=== PATIENT | male | born 1955 | race Caucasian/White ===

== ENCOUNTER 2019-03-22 18:52 | Emergency (ER) | payer BC ==
[~2019-03-22] VITALS: Ht 170.2 cm; Wt 92.5 kg
[2019-03-22 19:36] VITALS: BP 121/77
== END 2019-03-22 19:37 | disposition home or self-care (01) ==
LOC: ER 18:55
DX: S91.331A Puncture wound without foreign body, right foot, initial encounter (principal); W45.0XXA Nail entering through skin, initial encounter; Y93.89 Activity, other specified; Y92.89 Other specified places as the place of occurrence of the external cause; Y99.8 Other external cause status
CPT/HCPCS: A4663

== ENCOUNTER 2019-05-11 21:04 | Emergency (ER) | payer BC ==
[~2019-05-11] VITALS: Ht 170.2 cm; Wt 93.0 kg
[2019-05-11] MEDS ORDERED: ALLO100T PO (21:18)
[2019-05-11] MEDS ORDERED: CEFTRIAXONE 1 G VIAL ONE (21:41)
[2019-05-11] MEDS ORDERED: LIDOCAINE HCL 1% 20 ML VIAL ONE (21:41)
[2019-05-11] MEDS ORDERED: CEFTRIAXONE 1 G VIAL IM ONE (21:45)
[2019-05-11 21:58] VITALS: BP 139/74
--- NOTE | 2019-05-11 21:58 | NUR ---
Patient discharged to home in stable conditon. Written and verbal after care instructions given. Patient verbalizes understanding of instructions. Walked out of ER with no distress noted.
== END 2019-05-11 21:59 | disposition home or self-care (01) ==
LOC: ER 21:09
DX: L03.031 Cellulitis of right toe (principal); Z79.899 Other long term (current) drug therapy
CPT/HCPCS: 96372; 99283; J0696; J3490; A4663

== ENCOUNTER 2021-03-26 13:50 | Inpatient (IN) | payer BC ==
[~2021-03-26] VITALS: Ht 170.2 cm; Wt 85.7 kg
[~2021-03-26 13:50] MED LIST: ALLO100T PO
--- NOTE | 2021-03-26 14:10 | NUR ---
PT IS IN ROOM #1B. DR CASTREJON EVALUATED THE PT.
[2021-03-26 14:33] LABS: HEMATOCRIT 44.6 % (36.7-47.1); MEAN CORPUSCULAR HEMOGLOBIN 29.6 uug (23.8-33.4); MEAN CORPUSCULAR VOLUME 88.1 fL (73.0-96.2); PLATELET COUNT (AUTO) 234 K/uL (152-348)
[2021-03-26 14:51] LABS: THYROID STIMULATING HORMONE 1.248 mIU/mL (0.358-3.740)
[2021-03-26 14:55] LABS: CREATININE 1.5 mg/dL (0.6-1.3)
[2021-03-26 15:03] LABS: BILIRUBIN,DIRECT 0.1 mg/dL (0.0-0.2); BILIRUBIN,TOTAL 0.5 mg/dL (0.2-1.0); TOTAL PROTEIN, SERUM 7.1 g/dL (6.4-8.2)
[2021-03-26 15:04] LABS: MAGNESIUM 2.2 mg/dL (1.8-2.4); PHOSPHOROUS 3.1 mg/dL (2.5-4.9)
[2021-03-26] MEDS ORDERED: SIMV10TA98 PO (17:31)
[2021-03-26] MEDS ORDERED: ASPIRIN 325 MG TABLET PO ONE (18:30)
[2021-03-26] MEDS ORDERED: IV NS 1000 ML 1,000 ML IV ONE (18:30)
[2021-03-26] MEDS ORDERED: ASPIRIN 325 MG TABLET ONE (18:41)
[2021-03-26] MEDS ORDERED: ONDANSETRON 4 MG/2 ML VIAL IV PRN (18:45)
[2021-03-26] MEDS ORDERED: DOCUSATE SODIUM 100 MG CAPSULE PO PRN (18:45)
[2021-03-26] MEDS ORDERED: MAG HYDROX/AL HYDROX/SIMETH 30 ML LIQUID UDC PO PRN (18:45)
[2021-03-26] MEDS ORDERED: MORPHINE SULFATE 2 MG/1 ML DISP.SYRIN IV PRN (18:45)
[2021-03-26] MEDS ORDERED: NITROGLYCERIN 0.4 MG/TAB BOTTLE SL PRN (18:45)
[2021-03-26] MEDS ORDERED: ACETAMINOPHEN 325 MG TABLET PO PRN (18:45)
--- NOTE | 2021-03-26 20:45 | NUR ---
Gave report to Nando BELCHER
[2021-03-26 21:27] VITALS: BP 120/75
[2021-03-27 00:50] VITALS: BP 119/69
[2021-03-27 04:21] VITALS: BP 110/62
[2021-03-27 04:55] LABS: MEAN CORPUSCULAR HEMOGLOBIN 29.8 uug (23.8-33.4); MEAN CORPUSCULAR VOLUME 87.9 fL (73.0-96.2); PLATELET COUNT (AUTO) 210 K/uL (152-348)
[2021-03-27 05:01] LABS: CREATININE 1.2 mg/dL (0.6-1.3); POTASSIUM 3.9 mmol/L (3.5-5.1)
[2021-03-27 05:08] LABS: BILIRUBIN,TOTAL 0.5 mg/dL (0.2-1.0); MAGNESIUM 2.2 mg/dL (1.8-2.4); PHOSPHOROUS 3.4 mg/dL (2.5-4.9); TOTAL PROTEIN, SERUM 6.3 g/dL (6.4-8.2)
[2021-03-27 05:15] LABS: THYROID STIMULATING HORMONE 1.405 mIU/mL (0.358-3.740)
--- NOTE | 2021-03-27 07:30 | NUR ---
RECEIVED PT AWAKE , ALERT AND ORIENTEDX4. PT IN NO ACUTE DISTRESS. IV INTACT. PT ON SINUS RHYTHM. SAFETY AND COMFORT PROVIDED. WILL CONTINUE TO MONITOR.
[2021-03-27 08:00] VITALS: BP 111/71
[2021-03-27] MEDS ORDERED: ASPIRIN 81 MG TAB.CHEW PO SCH (09:00)
[2021-03-27] MEDS ORDERED: ENOXAPARIN SODIUM 40 MG/0.4 ML DISP.SYRIN SQ SCH (09:00)
[2021-03-27] MEDS ORDERED: ALLOPURINOL 100 MG TABLET PO SCH (09:00)
[2021-03-27] MEDS ORDERED: METO-356 PO (09:10)
--- NOTE | 2021-03-27 10:47 | NUR ---
PT IN NO ACUTE DISTRESS. PRESCRIBED MEDICATION GIVEN AND PT TOLERATED IT WELL. PT STABLE.PT IV INTACT. SAFETY AND COMFORT PROVIDED.WILL ENDORSE FOR CONTINUITY OF CARE.
--- NOTE | 2021-03-27 11:30 | NUR ---
took over care from am RN, pt wake alert and oriented x 4, denies of pain, no dyspnea, tele SB [id number], pt is going home, pt aware and family member to pick him up after lunch, safety measures maintained, call light within reach
--- NOTE | 2021-03-27 12:35 | NUR ---
discharge instructions given- verbalized understanding, tele discontinued and saline lock removed, no swelling/redness noted on site. waiting for his ride
--- NOTE | 2021-03-27 13:05 | NUR ---
escorted to lobby in stable condition, all belongings with him
[2021-03-27 13:38] VITALS: BP 136/61
[2021-03-27] MEDS ORDERED: SIMVASTATIN 10 MG TABLET PO SCH (21:00)
== END 2021-03-27 13:05 | disposition home or self-care (01) | DRG 201 ==
LOC: ER 13:50 → TELE3 20:50
PROVIDERS: ADMIT Registered Nurse; ATTEND Registered Nurse
DX: I47.1 Supraventricular tachycardia (principal); N17.0 Acute kidney failure with tubular necrosis; E66.9 Obesity, unspecified; E78.5 Hyperlipidemia, unspecified; E86.1 Hypovolemia; Z20.822 Contact with and (suspected) exposure to COVID-19; M10.9 Gout, unspecified; Z68.29 Body mass index [BMI] 29.0-29.9, adult
CPT/HCPCS: 36415; 70030-TC; 71045; 83735; 84100; 84443; 85025; 93005; 93307; A4663; G0378; J1650; J8499

== ENCOUNTER 2021-04-09 09:43 | Emergency (ER) | payer BC ==
[~2021-04-09] VITALS: Ht 170.2 cm; Wt 81.6 kg
[~2021-04-09 09:43] MED LIST changes: +METO-356 PO; +SIMV10TA98 PO
--- NOTE | 2021-04-09 10:15 | NUR ---
PATIENT CAME INTO THE ER FROM HOME WITH A C/C OF FAST HEART RATE. PATIET WAS IN THE ER FOR THE SAME PROBLEM OF LAST WEEK. PATIENT HAS A HISTORY OF GOUT, HIGH CHOLESTEROL, AND FAST HEART RATE. PATIENT DENIES, CHEST PAIN, IN NO ACUTED DISTRESS AND DENIES N/V/D. PATIENT IS IN GOWN, ON MONITORS, AAOX4. PENDING MD ORDERS.
[2021-04-09 10:17] LABS: HEMATOCRIT 44.3 % (36.7-47.1); MEAN CORPUSCULAR HEMOGLOBIN 29.6 uug (23.8-33.4); MEAN CORPUSCULAR VOLUME 87.4 fL (73.0-96.2); PLATELET COUNT (AUTO) 237 K/uL (152-348)
[2021-04-09 10:28] LABS: CREATININE 0.9 mg/dL (0.6-1.3); POTASSIUM 3.9 mmol/L (3.5-5.1)
[2021-04-09 10:40] LABS: BILIRUBIN,DIRECT 0.1 mg/dL (0.0-0.2); BILIRUBIN,TOTAL 0.4 mg/dL (0.2-1.0)
--- NOTE | 2021-04-09 10:44 | NUR ---
X-RAY PERFORMED AT BEDSIDE. PENDING RESULTS
--- NOTE | 2021-04-09 12:25 | NUR ---
EKG PERFORMED AT BEDSIDE
[2021-04-09] MEDS ORDERED: METO-356 PO (12:43)
[2021-04-09] MEDS ORDERED: RIVA20TA PO (12:43)
--- NOTE | 2021-04-09 12:44 | NUR ---
PATIENT BEING DISCHARGED HOME WITH MEDICATIONS. PATIENT VERBALIZED UNDERSTANDING OF TEACHING. PATIEN IS AAOX4, DENIES CHEST PAIN, SHORTNESS OF BREATH AND N/V/D. IV DC'D, ARMBAND REMOVED. PATIENT WALKING OUT OF ER WITH BELONGINGS.
== END 2021-04-09 12:57 | disposition home or self-care (01) ==
LOC: ER 09:43
DX: I48.0 Paroxysmal atrial fibrillation (principal); E78.5 Hyperlipidemia, unspecified; M10.9 Gout, unspecified; Z79.899 Other long term (current) drug therapy
CPT/HCPCS: 36415; 70030-TC; 71045; 83735; 85025; 93005; A4663